=== PATIENT | male | born 2000 | race Caucasian/White ===

== ENCOUNTER 2020-10-15 14:35 | Emergency (ER) | payer OTHER, SELFPAY ==
[~2020-10-15] VITALS: Ht 175.3 cm; Wt 86.2 kg
[2020-10-15 14:48] VITALS: BP_SYST 123
--- NOTE | 2020-10-15 14:48 | NUR ---
Triaged in tent. pt c/o sore throat, swollen tonsils x2 days. Denies fever. Awaiting MSE, no acute distress
--- NOTE | 2020-10-15 15:00 | NUR ---
Pt walked in to ER with c/o sore throat x3 days, reports h/o strep. V/S stable, pt is afebrile. No other complaints at this time.
--- NOTE | 2020-10-15 16:30 | NUR ---
ER Dr. Cherry at bedside examining patient.
[2020-10-15] MEDS ORDERED: cefTRIAXone 1 GM VIAL IM ONE (16:45)
[2020-10-15] MEDS ORDERED: LIDOCAINE 1%, 20 ML MDV 20 ML ONE (16:55)
[2020-10-15 17:09] VITALS: BP_SYST 123
--- NOTE | 2020-10-15 17:11 | NUR ---
Patient given written and verbal discharge instructions and verbalizes understanding. ER MD discussed with patient the results and treatment provided. Patient in stable condition. ID arm band removed. Rx of Motrin, Lidocaine mouth wash and Amoxicillin given. Patient educated on pain management and to follow up with PMD. Pain Scale 0. Opportunity for questions provided and answered. Medication side effect fact sheet provided.
== END 2020-10-15 17:09 | disposition home or self-care (01) ==
LOC: SED 14:36
DX: J02.0 Streptococcal pharyngitis (principal)
CPT/HCPCS: 96372; 99283; J0696; J2001